=== PATIENT | female | born 1975 | race Caucasian/White ===

== ENCOUNTER 2022-11-13 00:37 | Outpatient (CLI) | payer OTHER | END 2022-11-13 00:38 | disposition critical access hospital (66) | LOC: EMS 00:37 | DX: R07.89 Other chest pain (principal); R42 Dizziness and giddiness; R11.2 Nausea with vomiting, unspecified; R06.02 Shortness of breath; I10 Essential (primary) hypertension; F41.9 Anxiety disorder, unspecified | CPT/HCPCS: A0425; A0427 ==